=== PATIENT | female | born 1945 | race Caucasian/White ===

== ENCOUNTER 2019-08-25 02:33 | Emergency (ER) | payer MEDICARE ==
[2019-08-25 04:49] LABS: Basophils % (Auto) 0.3 % (0.0-1.8); Eosinophils # (Auto) 0.1 K/mm3 (0.0-0.4); Eosinophils % (Auto) 1.7 % (0.0-4.3); Hematocrit 40.6 % (30.3-42.9); Hemoglobin 13.6 gm/dl (10.1-14.3); Lymphocytes # (Auto) 1.8 K/mm3 (1.2-5.4); Lymphocytes % (Auto) 27.2 % (13.4-35.0); Mean Corpuscular HGB Conc 34 % (30-34); Mean Corpuscular Volume 88 fl (79-97); Monocytes # (Auto) 0.6 K/mm3 (0.0-0.8); Monocytes % (Auto) 8.8 % (0.0-7.3); Platelet Count 284 K/mm3 (140-440); Red Blood Count 4.64 M/mm3 (3.65-5.03); Red Cell Distribution Width 13.4 % (13.2-15.2)
[2019-08-25 04:58] LABS: BUN/Creatinine Ratio 20; Blood Urea Nitrogen 12 mg/dL (7-17); Calcium 9.9 mg/dL (8.4-10.2); Hemolysis Index 3
--- NOTE | 2019-08-25 06:17 | Emergency Department Report ---
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 They tell me that the patient took her blood pressure at about 1 AM and found it to be about 180/89. She had a mild headache. She no longer complains of headache but states that she has them "sometimes". She had no other neurological symptoms. She has been walking and speaking fine. She denies weakness or numbness. She has been taking losartan HCTZ 100/12.5 of which she took 1 pill at 1 AM last night. She usually takes them at 11 AM in the morning. Her blood pressure was still elevated when she arrived. She denies other symptoms. -: Gradual Location: head Radiation: non-radiation Severity scale (0 -10): 0 Quality: other (Mild) Consistency: now resolved Improves with: none Worsens with: none Associated Symptoms: denies other symptoms, headaches Treatments Prior to Arrival: none - Related Data Previous Rx's Medication Instructions Recorded Last Taken Type amLODIPine 5 mg PO DAILY #30 tab 08/25/19 Unknown Rx Allergies Allergy/AdvReac Type Severity Reaction Status Date / Time No Known Allergies Allergy Unverified 06/05/14 14:41 ED Review of Systems ROS: Stated complaint: HIGH BP Other details as noted in HPI Constitutional: denies: chills, fever Eyes: denies: eye pain, eye discharge, vision change ENT: denies: ear pain, throat pain Respiratory: denies: cough, shortness of breath, wheezing Cardiovascular: denies: chest pain, palpitations Endocrine: no symptoms reported Gastrointestinal: denies: abdominal pain, nausea, diarrhea Genitourinary: denies: urgency, dysuria, discharge Musculoskeletal: denies: back pain, joint swelling, arthralgia Skin: denies: rash, lesions Neurological: headache. denies: weakness, paresthesias Psychiatric: denies: anxiety, depression Hematological/Lymphatic: denies: easy bleeding, easy bruising ED Past Medical Hx - Past Medical History Previous Medical History?: Yes Hx Hypertension: Yes - Surgical History Past Surgical History?: No - Social History Smoking Status: Never Smoker Substance Use Type: None - Medications Home Medications: Home Medications Medication Instructions Recorded Confirmed Last Taken Type amLODIPine 5 mg PO DAILY #30 tab 08/25/19 Unknown Rx ED Physical Exam - General Limitations: No Limitations General appearance: alert, in no apparent distress - Head Head exam: Present: atraumatic, normocephalic - Eye Eye exam: Present: normal appearance, PERRL, EOMI. Absent: scleral icterus - ENT ENT exam: Present: mucous membranes moist - Neck Neck exam: Present: normal inspection. Absent: tenderness, meningismus - Respiratory Respiratory exam: Present: normal lung sounds bilaterally. Absent: respiratory distress - Cardiovascular Cardiovascular Exam: Present: regular rate, normal rhythm. Absent: systolic murmur, diastolic murmur, rubs, gallop - GI/Abdominal GI/Abdominal exam: Present: soft, normal bowel sounds. Absent: distended, tenderness, guarding, rebound - Extremities Exam Extremities exam: Present: normal inspection. Absent: calf tenderness - Back Exam Back exam: Present: normal inspection - Neurological Exam Neurological exam: Present: alert, oriented X3, CN II-XII intact, other (Cerebellar testing was normal). Absent: motor sensory deficit - Psychiatric Psychiatric exam: Present: normal affect, normal mood - Skin Skin exam: Present: warm, dry, intact, normal color. Absent: rash ED Course Vital Signs 08/25/19 08/25/19 08/25/19 02:41 06:13 06:14 Temperature 99.0 F Pulse Rate 115 H 89 Respiratory 20 16 16 Rate Blood Pressure 196/86 Blood Pressure 174/78 [Left] O2 Sat by Pulse 97 98 98 Oximetry - Reevaluation(s) Reevaluation #1: I will add amlodipine to the patient's regimen. She is referred back to her primary care physician. She is discharged in stable condition. 08/25/19 06:44 ED Medical Decision Making - Lab Data Result diagrams: 08/25/19 04:36 08/25/19 04:36 Laboratory Results - last 24 hr 08/25/19 08/25/19 04:36 04:36 WBC 6.6 RBC 4.64 Hgb 13.6 Hct 40.6 MCV 88 MCH 29 MCHC 34 RDW 13.4 Plt Count 284 Lymph % (Auto) 27.2 [place] % (Auto) 8.8 H Eos % (Auto) 1.7 Baso % (Auto) 0.3 Lymph # 1.8 [place] # 0.6 Eos # 0.1 Baso # 0.0 Seg Neutrophils % 62.0 Seg Neutrophils # 4.1 Sodium 136 L Potassium 4.0 Chloride 94.8 L Carbon Dioxide 26 Anion Gap 19 BUN 12 Creatinine 0.6 L Estimated GFR > 60 BUN/Creatinine Ratio 20 Glucose 128 H Calcium 9.9 Critical care attestation.: If time is entered above; I have spent that time in minutes in the direct care of this critically ill patient, excluding procedure time. ED Disposition Clinical Impression: Uncontrolled hypertension Cephalalgia Qualifiers: Headache type: unspecified Headache chronicity pattern: acute headache Intractability: not intractable Qualified Code(s): R51 - Headache Disposition: DC-01 TO HOME OR SELFCARE Is pt being admited?: No Does the pt Need Aspirin: No Condition: Stable Instructions: Hypertension (ED), Acute Headache (ED) Additional Instructions: Return any acute change or problem. Continue your usual high blood pressure medication as directed. Add amlodipine. Follow-up with your primary care physician. Prescriptions: amLODIPine 5 mg PO DAILY #30 tab Referrals: PRIMARY CARE [Primary Care Provider] - 2-3 Days Time of Disposition: 06:46
[2019-08-25] MEDS ORDERED: amLODIPine 5 MG TAB PO ONE (06:47)
[2019-08-25 07:33] VITALS: BP 146/71
== END 2019-08-25 07:39 | disposition home or self-care (01) ==
LOC: ED 02:33
DX: I10 Essential (primary) hypertension (principal)
CPT/HCPCS: 36415; 80048; 85025